=== PATIENT | male | born 1995 | race Caucasian/White ===

== ENCOUNTER 2017-07-29 06:28 | Emergency (ER) | payer SELFPAY ==
[2017-07-29 06:38] VITALS: BP 133/81
[2017-07-29] MEDS ORDERED: ZOFRAN ODT ONE (06:49)
[2017-07-29] MEDS ORDERED: ZOFRAN ODT PO ONE (06:51)
--- NOTE | 2017-07-29 07:02 | Cat Scan Report ---
FINAL REPORT EXAM: CT HEAD/BRAIN WO CON HISTORY: PETTY TECHNIQUE: CT imaging acquired through the head without intravenous contrast. Transaxial reformations are provided. PRIORS: None. FINDINGS: The ventricles, cisterns and sulci are normal. No intraparenchymal or extra-axial mass, hemorrhage, or mass effect. Melchor and white-matter differentiation is normal. Normal spherical shape of the globes. Paranasal sinuses and mastoid air cells are clear. No skull or facial fracture visualized. IMPRESSION: No acute intracranial abnormality.
[2017-07-29] MEDS ORDERED: REGLAN IV ONE (07:13)
[2017-07-29] MEDS ORDERED: BENADRYL IV ONE (07:14)
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
== END 2017-07-29 08:54 | disposition home or self-care (01) ==
LOC: ED 06:28
DX: R51 Headache (principal); R11.2 Nausea with vomiting, unspecified; F12.10 Cannabis abuse, uncomplicated; F17.200 Nicotine dependence, unspecified, uncomplicated
CPT/HCPCS: 70450; 96374; 96375; 99283; J1200; J2765; Q0162

== ENCOUNTER 2017-07-31 15:37 | Emergency (ER) | payer SELFPAY ==
[2017-07-31 15:56] VITALS: BP 123/54
[2017-07-31] MEDS ORDERED: TYLENOL PO ONE (15:58)
[2017-07-31] MEDS ORDERED: TYLENOL ONE (15:58)
== END 2017-08-01 01:07 | disposition left against medical advice (07) ==
LOC: ED 15:37
DX: R51 Headache (principal); Z53.21 Procedure and treatment not carried out due to patient leaving prior to being seen by health care provider

== ENCOUNTER 2018-01-02 10:07 | Emergency (ER) | payer SELFPAY ==
[2018-01-02 10:15] VITALS: BP 147/62
[2018-01-02 10:50] LABS: Bilirubin,Urine NEG (Negative); Blood,Urine NEG (Negative); Color,Urine Straw (Yellow); Mucus,Urine FEW /HPF; Protein,Urine <15 mg/dL mg/dL (Negative); Urobilinogen,Urine < 2.0 mg/dL (<2.0)
--- NOTE | 2018-01-02 12:16 | Emergency Department Report ---
ED Male HPI - General Chief complaint: Urogenital-Male Stated complaint: UTI Time Seen by Provider: 01/02/18 11:36 Source: patient Mode of arrival: Ambulatory Limitations: No Limitations - History of Present Illness Initial comments: This is a 22-year-old -[place] male presents with dysuria for 2 days. Patient reports feeling frequency, urgency, and bladder pressure. Patient reports taking cranberry peels which improved symptoms. Denies discharge, back pain, STD exposure, testicular pain, and testicular swelling. MD Complaint: dysuria -: days(s) (2 days ago) Location: penis Radiation: none Severity: mild Severity scale (0 -10): 3 Quality: burning Consistency: intermittent Improves with: none Worsens with: urination dysuria. denies: discharge, swelling, mass, rash, urinary retention, blood in urine, fever, nausea/vomiting, incontinence - Related Data Sexually active: Yes Allergies Allergy/AdvReac Type Severity Reaction Status Date / Time No Known Allergies Allergy Unverified 02/18/15 10:39 ED Review of Systems ROS: Stated complaint: UTI Other details as noted in HPI Constitutional: denies: chills, fever Respiratory: denies: cough, shortness of breath, wheezing Cardiovascular: denies: chest pain, palpitations Gastrointestinal: denies: abdominal pain, nausea, diarrhea Genitourinary: urgency, dysuria, frequency. denies: hematuria, discharge, testicular pain, testicular mass Neurological: denies: headache, weakness, paresthesias Psychiatric: denies: anxiety, depression ED Past Medical Hx - Past Medical History Previous Medical History?: No - Surgical History Past Surgical History?: No - Social History Smoking Status: Current Some Day Smoker Substance Use Type: None ED Physical Exam - General Limitations: No Limitations General appearance: alert, in no apparent distress - Respiratory Respiratory exam: Present: normal lung sounds bilaterally. Absent: respiratory distress - Cardiovascular Cardiovascular Exam: Present: regular rate, normal rhythm, normal heart sounds. Absent: systolic murmur, diastolic murmur, rubs, gallop - GI/Abdominal GI/Abdominal exam: Present: soft, normal bowel sounds - Back Exam Back exam: Present: normal inspection. Absent: CVA tenderness (R), CVA tenderness (L) - Neurological Exam Neurological exam: Present: alert, oriented X3, normal gait - Psychiatric Psychiatric exam: Present: normal affect, normal mood ED Course Vital Signs 01/02/18 10:11 Temperature 98.6 F Pulse Rate 80 Blood Pressure 147/62 O2 Sat by Pulse 100 Oximetry ED Medical Decision Making - Medical Decision Making This is a 22 y.o. male presents with dysuria, frequency, and urgency for 2 days. Patient was examined by me. Vital stable. No distress noted. Discussed results with patient. Urinalysis ordered and within normal limits. Given Rocephin 250 mg IM and azithromycin 1 g by mouth 1 in ER for urethritis. Discharged home in stable condition. F/U with PCP or Health Department. Critical care attestation.: If time is entered above; I have spent that time in minutes in the direct care of this critically ill patient, excluding procedure time. ED Disposition Clinical Impression: UTI (urinary tract infection) Qualifiers: Urinary tract infection type: urethritis Qualified Code(s): N34.2 - Other urethritis Disposition: DC-01 TO HOME OR SELFCARE Is pt being admited?: No Does the pt Need Aspirin: No Condition: Stable Instructions: Urinary Tract Infection in Men (ED), Dysuria (ED) Additional Instructions: Increase fluid intake. Complete medication as prescribed. Follow-up with primary care provider in 2-3 days. Referrals: [facility] [Outside] - 3-5 Days [facility] [Outside] - 3-5 Days [facility] [Outside] - 3-5 Days Forms: Work/School Release Form(ED) Time of Disposition: 12:22 Print Language: SWISS
[2018-01-02] MEDS ORDERED: ZITHROMAX PO ONE (12:24)
[2018-01-02] MEDS ORDERED: XYLOCAINE 1% MPF 5 mL INFILTRATI ONE (12:24)
[2018-01-02] MEDS ORDERED: ROCEPHIN IM ONE (12:24)
== END 2018-01-02 12:47 | disposition home or self-care (01) ==
LOC: ED 10:07
DX: N34.2 Other urethritis (principal); Z72.0 Tobacco use
CPT/HCPCS: 81001; 96372; 99283; J0696

== ENCOUNTER 2018-01-02 13:43 | Emergency (ER) | payer SELFPAY ==
[2018-01-02] MEDS ORDERED: ZOFRAN ODT PO ONE (13:47)
[2018-01-02 14:05] VITALS: BP 116/57
== END 2018-01-02 14:21 | disposition home or self-care (01) ==
LOC: ED 13:43
DX: N28.89 Other specified disorders of kidney and ureter (principal); Z72.0 Tobacco use
CPT/HCPCS: 99282; Q0162

== ENCOUNTER 2018-01-04 09:24 | Emergency (ER) | payer SELFPAY ==
[2018-01-04 09:33] VITALS: BP 118/71
--- NOTE | 2018-01-04 11:20 | Emergency Department Report ---
ED Male HPI - General Chief complaint: Urogenital-Male Stated complaint: DIFFICULTY UNRINATING/PENILE PAIN Time Seen by Provider: 01/04/18 10:55 Source: patient Mode of arrival: Ambulatory Limitations: No Limitations - History of Present Illness Initial comments: This is a 22-year-old male nontoxic, well nourished in appearance, no acute signs of distress presents to the ED complaining of dysuria and polyuria 3 days. Patient denies any sexual intercourse. Patient denies any testicular pain, penile ulcers, or lesions. Patient denies any penile discharge. Patient stated he was treated with Rocephin and Azithromycin 3 days ago and stated symptoms never resolved. Patient denies any hematuria, back pain, fever, chills , nausea, vomiting, chest pain, short of breath, abdominal pain, back pain, stiff neck or headache. Patient denies any allergies or PMH. MD Complaint: dysuria -: days(s) (3) Location: penis Radiation: none Severity: mild Severity scale (0 -10): 8 Quality: burning Consistency: constant Improves with: none Worsens with: urination dysuria. denies: discharge, swelling, mass, rash, urinary retention, blood in urine, fever, nausea/vomiting, incontinence - Related Data Previous Rx's Medication Instructions Recorded Last Taken Type Ondansetron [Zofran Odt] 4 mg PO TID PRN #10 tab.rapdis 01/02/18 Unknown Rx Sulfamethoxazole/Trimethoprim 1 each PO BID #14 tablet 01/04/18 Unknown Rx [Bactrim DS TAB] Allergies Allergy/AdvReac Type Severity Reaction Status Date / Time No Known Allergies Allergy Verified 01/04/18 09:28 ED Review of Systems ROS: Stated complaint: DIFFICULTY UNRINATING/PENILE PAIN Other details as noted in HPI Constitutional: denies: chills, fever Eyes: denies: eye pain, eye discharge, vision change ENT: denies: ear pain, throat pain Respiratory: denies: cough, shortness of breath, wheezing Cardiovascular: denies: chest pain, palpitations Endocrine: no symptoms reported Gastrointestinal: denies: abdominal pain, nausea, diarrhea Genitourinary: urgency, dysuria, frequency. denies: hematuria, discharge, testicular pain, testicular mass Musculoskeletal: denies: back pain, joint swelling, arthralgia Skin: denies: rash, lesions Neurological: denies: headache, weakness, paresthesias Psychiatric: denies: anxiety, depression Hematological/Lymphatic: denies: easy bleeding, easy bruising ED Past Medical Hx - Past Medical History Previous Medical History?: No - Surgical History Past Surgical History?: No - Social History Smoking Status: Current Some Day Smoker Substance Use Type: None - Medications Home Medications: Home Medications Medication Instructions Recorded Confirmed Last Taken Type Ondansetron [Zofran Odt] 4 mg PO TID PRN #10 tab.rapdis 01/02/18 Unknown Rx Sulfamethoxazole/Trimethoprim 1 each PO BID #14 tablet 01/04/18 Unknown Rx [Bactrim DS TAB] ED Physical Exam - General Limitations: No Limitations General appearance: alert, in no apparent distress - Head Head exam: Present: atraumatic, normocephalic - Eye Eye exam: Present: normal appearance Pupils: Present: normal accommodation - ENT ENT exam: Present: normal exam, mucous membranes moist - Neck Neck exam: Present: normal inspection, full ROM. Absent: tenderness, meningismus - Respiratory Respiratory exam: Present: normal lung sounds bilaterally. Absent: respiratory distress, wheezes, rales, rhonchi, stridor, chest wall tenderness, accessory muscle use, decreased breath sounds, prolonged expiratory - Cardiovascular Cardiovascular Exam: Present: regular rate, normal rhythm, normal heart sounds. Absent: bradycardia, tachycardia, irregular rhythm, systolic murmur, diastolic murmur, rubs, gallop - GI/Abdominal GI/Abdominal exam: Present: soft, normal bowel sounds - Rectal Rectal exam: Present: deferred - exam: Present: normal inspection. Absent: testicular tenderness, urethral discharge, scrotal swelling, vertical testicular lie External exam: Present: normal external exam. Absent: erythema, swelling, lesions, lacerations, ecchymosis, bleeding - Extremities Exam Extremities exam: Present: normal inspection, full ROM, normal capillary refill - Back Exam Back exam: Present: normal inspection, full ROM. Absent: tenderness, CVA tenderness (R), CVA tenderness (L), muscle spasm, paraspinal tenderness, vertebral tenderness, rash noted - Neurological Exam Neurological exam: Present: alert, oriented X3, normal gait - Psychiatric Psychiatric exam: Present: normal affect, normal mood - Skin Skin exam: Present: warm, dry, intact, normal color. Absent: rash ED Course Vital Signs 01/04/18 09:29 Temperature 97.7 F Pulse Rate 80 Respiratory 18 Rate Blood Pressure 118/71 O2 Sat by Pulse 100 Oximetry - Reevaluation(s) Reevaluation #1: 01/04/18 11:20 Patient is speaking in full sentences with no signs of distress noted. ED Medical Decision Making - Medical Decision Making 22-year-old male that presents with UTI symptoms. Patient is stable and was examined by me. Urine culture pending. Due to symptoms worsening I started patient on Bactrim until culture returns. Patient did received Rocephine and Azithromycin in the last visit. No CVA tenderness. Patient was referred to Follow-up with a primary care doctor in 3-5 days or if symptoms worsen and continue return to emergency room as soon as possible. At time of discharge, the patient does not seem toxic or ill in appearance. No acute signs of distress noted. Patient agrees to discharge treatment plan of care. No further questions noted by the patient. Critical care attestation.: If time is entered above; I have spent that time in minutes in the direct care of this critically ill patient, excluding procedure time. ED Disposition Clinical Impression: Ureteritis Disposition: DC-01 TO HOME OR SELFCARE Is pt being admited?: No Does the pt Need Aspirin: No Condition: Stable Instructions: Dysuria (ED) Additional Instructions: Follow-up with a primary care doctor in 3-5 days or if symptoms worsen and continue return to emergency room as soon as possible. Prescriptions: Sulfamethoxazole/Trimethoprim [Bactrim DS TAB] 1 each PO BID #14 tablet Referrals: APRIL KELLY MD [Primary Care Provider] - 3-5 Days GENEVA FERGUSON MD [Staff Physician] - 3-5 Days [facility] [Outside] - 3-5 Days [facility] [Outside] - 3-5 Days Forms: Work/School Release Form(ED)
[2018-01-04 11:42] LABS: Bilirubin,Urine NEG (Negative); Blood,Urine NEG (Negative); Color,Urine Yellow (Yellow); Mucus,Urine FEW /HPF; Protein,Urine <15 mg/dL mg/dL (Negative); Urobilinogen,Urine < 2.0 mg/dL (<2.0)
== END 2018-01-04 11:59 | disposition home or self-care (01) ==
LOC: ED 09:24
DX: N28.89 Other specified disorders of kidney and ureter (principal); Z72.0 Tobacco use
CPT/HCPCS: 81001; 87086; 99283

== ENCOUNTER 2019-01-06 13:06 | Emergency (ER) | payer OTHER ==
[2019-01-06 13:33] VITALS: BP 129/69
--- NOTE | 2019-01-06 13:39 | Emergency Department Report ---
Eye Injury/Foreign Body - HPI Duration: 2 Days Eye Location: Left Severity: Mild Tetanus Status: Up to Date Eye Symptoms: Eye Pain: Yes, Blurred Vision: No, Eye Redness: No, Grinding/Hammering Metal: No, Used Eye Protection: No, Contact Lens Use: No, Photophobia: No Other History: SWELLINT TO LEFT EYELID. TRIED TO "POP IT" BUT MADE IT WORSEN. NO FB NOTED ED Review of Systems ROS: Stated complaint: EYE IRRITATION Other details as noted in HPI Constitutional: denies: chills, fever Eyes: denies: eye pain, eye discharge, vision change ENT: denies: ear pain, throat pain Respiratory: denies: cough, shortness of breath, wheezing Cardiovascular: denies: chest pain, palpitations Endocrine: no symptoms reported Gastrointestinal: denies: abdominal pain, nausea, diarrhea Genitourinary: denies: urgency, dysuria Musculoskeletal: denies: back pain, joint swelling, arthralgia Skin: change in color. denies: rash, lesions Neurological: denies: headache, weakness, paresthesias Psychiatric: denies: anxiety, depression Hematological/Lymphatic: denies: easy bleeding, easy bruising ED Past Medical Hx - Past Medical History Previous Medical History?: No - Surgical History Past Surgical History?: No - Social History Smoking Status: Never Smoker Substance Use Type: Marijuana - Medications Home Medications: Home Medications Medication Instructions Recorded Confirmed Last Taken Type Ondansetron [Zofran Odt] 4 mg PO TID PRN #10 tab.rapdis 01/02/18 Unknown Rx Sulfamethoxazole/Trimethoprim 1 each PO BID #14 tablet 01/04/18 Unknown Rx [Bactrim DS TAB] Ketorolac Tromethamin 0.4%(Nf) 1 drop OP QID #1 bottle 01/06/19 Unknown Rx [Acular Ls 0.4% Ophth Milka] Tobramycin 0.3% [Tobrex] 1 applicatio OS Q8HR #1 tube 01/06/19 Unknown Rx Eye Injury Exam - Exam General: Vital signs noted. No distress. Alert and acting appropriately. ED Course Vital Signs 01/06/19 13:32 Temperature 98.7 F Pulse Rate 62 Respiratory 16 Rate Blood Pressure 129/69 [Right] O2 Sat by Pulse 100 Oximetry Critical care attestation.: If time is entered above; I have spent that time in minutes in the direct care of this critically ill patient, excluding procedure time. ED Disposition Clinical Impression: Stmona Disposition: DC-01 TO HOME OR SELFCARE Is pt being admited?: No Does the pt Need Aspirin: No Condition: Stable Instructions: Brian (ED) Referrals: [facility] [Provider Group] - 3-5 Days ED Eye Prob EXAM - General Limitations: No Limitations Head exam: Positive: atraumatic Eyelids: Stye: Left, Swelling: Left Pupils: Regular, Round: Bilateral, Mydriasis: Left Sclera: Normal Inspection: Bilateral ENT exam: Positive: normal exam Neck exam: Positive: normal inspection, tenderness, full ROM Respiratory exam: Positive: normal lung sounds bilaterally. Negative: chest wall tenderness, accessory muscle use, decreased breath sounds, prolonged expiratory Cardiovascular Exam: Positive: regular rate Neurological exam: Positive: alert, CN II-XII intact Psychiatric exam: Positive: normal affect Skin exam: Negative: vesicles, petechiae, pallor
== END 2019-01-06 13:53 | disposition home or self-care (01) ==
LOC: ED 13:06
DX: H00.016 Hordeolum externum left eye, unspecified eyelid (principal)
CPT/HCPCS: 99281

== ENCOUNTER 2019-01-23 16:08 | Emergency (ER) | payer OTHER ==
[2019-01-23 16:20] VITALS: BP 109/67
--- NOTE | 2019-01-23 16:26 | Emergency Department Report ---
ED Eye Problem HPI - General Chief complaint: Medical Clearance Stated complaint: MEDICATION REFILL Time Seen by Provider: 01/23/19 16:19 Source: patient Mode of arrival: Ambulatory Limitations: No Limitations - History of Present Illness MD chief complaint: eye redness -: week(s) Onset Description: gradual Location: left eye Place: home If Injury: none Eye Symptoms: redness Severity: mild, moderate If Pain, Quality: burning, aching Consistency: constant Associated Symptoms: none Treatments Prior to Arrival: none - Related Data Previous Rx's Medication Instructions Recorded Last Taken Type Ondansetron [Zofran Odt] 4 mg PO TID PRN #10 tab.rapdis 01/02/18 Unknown Rx Sulfamethoxazole/Trimethoprim 1 each PO BID #14 tablet 01/04/18 Unknown Rx [Bactrim DS TAB] Ketorolac Tromethamin 0.4%(Nf) 1 drop OP QID #1 bottle 01/06/19 Unknown Rx [Acular Ls 0.4% Ophth Milka] Gentamicin 0.3% Ophth Oint 1 applicatio OP Q4H #1 tube 01/23/19 Unknown Rx Gentamicin 0.3% Ophth Soln 2 drops OP Q4H #1 bottle 01/23/19 Unknown Rx Allergies Allergy/AdvReac Type Severity Reaction Status Date / Time No Known Allergies Allergy Verified 01/06/19 13:08 ED Review of Systems ROS: Stated complaint: MEDICATION REFILL Other details as noted in HPI Constitutional: denies: chills, fever Eyes: eye pain. denies: eye discharge, vision change ENT: denies: ear pain, throat pain Respiratory: denies: cough, shortness of breath, wheezing Cardiovascular: denies: chest pain, palpitations Endocrine: no symptoms reported Gastrointestinal: denies: abdominal pain, nausea, diarrhea Genitourinary: denies: urgency, dysuria Musculoskeletal: denies: back pain, joint swelling, arthralgia Skin: denies: rash, lesions Neurological: denies: headache, weakness, paresthesias Psychiatric: denies: anxiety, depression Hematological/Lymphatic: denies: easy bleeding, easy bruising ED Past Medical Hx - Past Medical History Previous Medical History?: Yes Additional medical history: eye irritation - Surgical History Past Surgical History?: No - Social History Smoking Status: Current Some Day Smoker Substance Use Type: Marijuana - Medications Home Medications: Home Medications Medication Instructions Recorded Confirmed Last Taken Type Ondansetron [Zofran Odt] 4 mg PO TID PRN #10 tab.rapdis 01/02/18 Unknown Rx Sulfamethoxazole/Trimethoprim 1 each PO BID #14 tablet 01/04/18 Unknown Rx [Bactrim DS TAB] Ketorolac Tromethamin 0.4%(Nf) 1 drop OP QID #1 bottle 01/06/19 Unknown Rx [Acular Ls 0.4% Ophth Milka] Gentamicin 0.3% Ophth Oint 1 applicatio OP Q4H #1 tube 01/23/19 Unknown Rx Gentamicin 0.3% Ophth Soln 2 drops OP Q4H #1 bottle 01/23/19 Unknown Rx ED Physical Exam - General Limitations: No Limitations General appearance: alert, in no apparent distress - Head Head exam: Present: atraumatic, normocephalic - Eye Eye exam: Present: normal appearance, PERRL, EOMI, conjunctival injection, periorbital swelling (LOWER LEFT EYELID) Pupils: Present: normal accommodation - ENT ENT exam: Present: normal exam, normal orophraynx, mucous membranes moist - Neck Neck exam: Present: normal inspection - Respiratory Respiratory exam: Present: normal lung sounds bilaterally. Absent: respiratory distress - Cardiovascular Cardiovascular Exam: Present: regular rate, normal rhythm. Absent: systolic murmur, diastolic murmur, rubs, gallop - GI/Abdominal GI/Abdominal exam: Present: soft, normal bowel sounds - Rectal Rectal exam: Present: deferred - Extremities Exam Extremities exam: Present: normal inspection, full ROM, normal capillary refill - Back Exam Back exam: Present: normal inspection, full ROM, CVA tenderness (L). Absent: paraspinal tenderness, vertebral tenderness - Neurological Exam Neurological exam: Present: alert, oriented X3, CN II-XII intact, normal gait - Psychiatric Psychiatric exam: Present: normal affect, normal mood - Skin Skin exam: Present: warm, dry, intact, normal color. Absent: rash ED Course Vital Signs 01/23/19 16:17 Temperature 97.7 F Pulse Rate 67 Respiratory 18 Rate Blood Pressure 109/67 O2 Sat by Pulse 100 Oximetry Critical care attestation.: If time is entered above; I have spent that time in minutes in the direct care of this critically ill patient, excluding procedure time. ED Disposition Clinical Impression: Irritation of left eye Disposition: DC-01 TO HOME OR SELFCARE Is pt being admited?: No Does the pt Need Aspirin: No Condition: Stable Instructions: Brian (ED) Additional Instructions: use the ointment. if you are unable to find the ointment then use the script for the drops in place of the ointment. DO NOT USE BOTH THE DROP AND OINTMENT FOR YOUR EYE!!!!! Prescriptions: Gentamicin 0.3% Ophth Oint 1 applicatio OP Q4H #1 tube Gentamicin 0.3% Ophth Soln 2 drops OP Q4H #1 bottle Referrals: [facility] [Provider Group] - 3-5 Days
== END 2019-01-23 16:41 | disposition home or self-care (01) ==
LOC: ED 16:08
DX: H57.89 Other specified disorders of eye and adnexa (principal); F17.200 Nicotine dependence, unspecified, uncomplicated; F12.90 Cannabis use, unspecified, uncomplicated; Z79.899 Other long term (current) drug therapy
CPT/HCPCS: 99282